=== PATIENT | female | born 1960 | race American Indian/Alaskan Native ===

== ENCOUNTER 2018-01-13 08:31 | Day surgery (SDC) | payer OTHER ==
[2015-06-06 09:48] VITALS: BMI 22.3
[2018-01-13 09:28] VITALS: O2SAT 100
--- NOTE | 2018-01-13 09:43 | CP.SDSHP ---
Same Day Surgery H & P - History Proposed Procedure: colonoscopy - Previous Medical/Surgical History Cardiac: Hypertension Previous Surgical History: Csection - Allergies Allergies: Allergies No Known Allergies Allergy (Verified 01/13/18 09:06) - Physical Exam Vital Signs: Vital Signs 01/13/18 09:11 Temperature 98.2 F Pulse Rate 57 L Respiratory 19 Rate Blood Pressure 184/86 H O2 Sat by Pulse 100 Oximetry - Date & Time Date: 01/13/18 Time: 09:42 Short Stay Discharge - Short Stay Discharge Admitting Diagnosis/Reason for Visit: ENCOUNTER FOR SCREENING FOR MALIGNANT NEOPLASM OF Disposition: HOME/ ROUTINE Referrals: Ambrosio Hutchinson MD [Primary Care Provider] -
[2018-01-13] MEDS ORDERED: Propofol 10 mg/ml Inj (20 ML) ONE ×2 (09:50→10:04)
[2018-01-13] MEDS ORDERED: Midazolam 2 MG/2 ML VIAL ONE (09:58)
[2018-01-13 11:15] VITALS: TEMP 97.5
[2018-01-13 11:40] VITALS: BP 180/78; PULSE 63; RESP 12
== END 2018-01-13 11:35 | disposition home or self-care (01) ==
LOC: C.ENDO 08:31
PROVIDERS: ATTEND Colon & Rectal Surgery
DX: Z12.11 Encounter for screening for malignant neoplasm of colon (principal); K62.1 Rectal polyp; K57.30 Diverticulosis of large intestine without perforation or abscess without bleeding
CPT/HCPCS: 45388; 88305; J2250; J2704; J3010